=== PATIENT | female | born 1995 | race African-American/Black ===

== ENCOUNTER 2022-06-28 22:44 | Emergency (ER) | payer SELFPAY ==
[2022-06-28] MEDS ORDERED: TOBRAMYCIN 0.3% OPTH OINT 3.5 GM TUBE OP ONE (23:15)
[2022-06-28] MEDS ORDERED: TOBRAMYCIN 0.3% OPTH OINT 3.5 GM TUBE ONE (23:20)
== END 2022-06-28 23:25 | disposition home or self-care (01) ==
LOC: ER 22:56
DX: T65.91XA Toxic effect of unspecified substance, accidental (unintentional), initial encounter (principal); H10.213 Acute toxic conjunctivitis, bilateral; Y92.9 Unspecified place or not applicable
CPT/HCPCS: 99283